=== PATIENT | female | born 1995 | race Caucasian/White ===

== ENCOUNTER 2020-12-13 15:27 | Outpatient (CLI) | payer BC ==
[~2020-12-13] VITALS: Ht 175.3 cm; Wt 115.9 kg
[2020-12-13 15:30] VITALS: BP 127/78
== END 2020-12-13 17:19 | disposition home or self-care (01) ==
LOC: LDOP 15:27
PROVIDERS: ATTEND Obstetrics & Gynecology
DX: O22.33 Deep phlebothrombosis in pregnancy, third trimester (principal); Z3A.32 32 weeks gestation of pregnancy
CPT/HCPCS: 59025

== ENCOUNTER 2021-01-22 13:57 | Inpatient (IN) | payer BC ==
[~2021-01-22] VITALS: Ht 175.3 cm; Wt 123.0 kg
[2021-01-22 14:11] VITALS: BP 125/78
[2021-01-22] MEDS ORDERED: TERBUTALINE 1 MG/ML, 1ML SQ PRN (14:30)
[2021-01-22] MEDS ORDERED: PLEASE ENTER HEIGHT AND WEIGHT MC SCH (14:30)
[2021-01-22] MEDS ORDERED: OXYTOCIN 30U/ 0.9% NaCL 500ML 500 ML IV PRN (14:30)
[2021-01-22] MEDS ORDERED: CALCIUM CARBONATE 500 MG TAB.CHEW PO PRN (14:30)
[2021-01-22] MEDS ORDERED: D5%-LACTATED RINGERS 1,000 ML IV SCH (14:30)
[2021-01-22] MEDS ORDERED: OXYTOCIN 30U/ 0.9% NaCL 500ML 500 ML IV ONE (14:30)
[2021-01-22] MEDS ORDERED: LACTATED RINGERS 1,000 ML IV SCH (14:30)
[2021-01-22] MEDS ORDERED: TERBUTALINE 1 MG/ML, 1ML IVPush PRN (14:30)
[2021-01-22] MEDS ORDERED: ONDANSETRON 2MG/ML, 2ML IVPush PRN (14:30)
[2021-01-22] MEDS ORDERED: FENTANYL PF 100 MCG/2ML IV PRN (14:30)
[2021-01-22 14:40] LABS: MICROSCOPIC INDICATED
[2021-01-22 14:40] LABS: BASOPHILS % (AUTO) 1 % (0-1); EOSINOPHILS % (AUTO) 0 % (1-7); LYMPHOCYTES % (AUTO) 26 % (22-44); MEAN CORPUSCULAR HEMOGLOBIN 31.2 pg (27.0-34.8); MEAN CORPUSCULAR HGB CONC 33.8 g/dL (32.4-35.8); MEAN PLATELET VOLUME 8.8 fL (7.4-10.4); MONOCYTES % (AUTO) 5 % (2-9); NEUTROPHILS % (AUTO) 68 % (42-75); PLATELET COUNT 205 x10^3/uL (130-400); RED BLOOD COUNT 4.19 x10^6/uL (3.82-5.3); RED CELL DISTRIBUTION WIDTH 15.1 % (9.6-15.2)
[2021-01-22 14:43] LABS: MD NO
[2021-01-22 14:50] LABS: ALANINE AMINOTRANSFERASE 21 U/L (12-78); ALBUMIN 2.7 g/dL (3.4-5.0); ANION GAP 6 mmol/L (5-15); CALCIUM 9.1 mg/dL (8.5-10.1); CHLORIDE 110 mmol/L (98-107); CREATININE 0.93 mg/dL (0.55-1.02)
[2021-01-22 14:53] LABS: ALKALINE PHOSPHATASE 96 U/L (45-117); BILIRUBIN,TOTAL 0.2 mg/dL (0.2-1.0); TOTAL PROTEIN 6.7 g/dL (6.4-8.2)
[2021-01-22 14:55] LABS: BILIRUBIN, DIRECT < 0.1 mg/dL (0.1-0.2)
[2021-01-22] MEDS: MISOPROSTOL 25 MCG TABLET VG PRN ×2 (14:56→20:35)
[2021-01-23] MEDS: FENTANYL PF 100 MCG/2ML IVPush PRN ×2 (07:51→09:05)
[2021-01-23] MEDS ORDERED: LIDOCAINE 1%, 20ML ONE (08:53)
[2021-01-23] MEDS ORDERED: ONDANSETRON 2MG/ML, 2ML IV PRN (09:30)
[2021-01-23] MEDS ORDERED: MISOPROSTOL 200 MCG TABLET PR PRN (09:30)
[2021-01-23] MEDS ORDERED: ACETAMINOPHEN 325 MG TABLET PO PRN (09:30)
[2021-01-23] MEDS ORDERED: OXYTOCIN 30U/ 0.9% NaCL 500ML 500 ML IV SCH (09:30)
[2021-01-23] MEDS ORDERED: SIMETHICONE 80 MG CHEW TAB PO PRN (09:30)
[2021-01-23] MEDS ORDERED: METOCLOPRAMIDE 5 MG/ML, 2ML IV PRN (09:30)
[2021-01-23] MEDS ORDERED: OXYcodone/APAP 5/325MG TABLET PO PRN ×2 (09:30)
[2021-01-23] MEDS ORDERED: NEWBORN KIT ONE (09:59)
[2021-01-23 11:00] VITALS: BP 123/74
[2021-01-23] MEDS: IBUPROFEN 800 MG TABLET PO PRN ×2 (12:43→23:53)
[2021-01-23] MEDS: DOCUSATE 100 MG CAPSULE PO PRN ×2 (12:43→23:53)
[2021-01-23 16:30] VITALS: BP 100/45
[2021-01-23 19:27] LABS: BASOPHILS % (AUTO) 0 % (0-1); EOSINOPHILS % (AUTO) 0 % (1-7); LYMPHOCYTES % (AUTO) 20 % (22-44); MEAN CORPUSCULAR HEMOGLOBIN 30.9 pg (27.0-34.8); MEAN PLATELET VOLUME 8.9 fL (7.4-10.4); MONOCYTES % (AUTO) 5 % (2-9); NEUTROPHILS % (AUTO) 75 % (42-75); PLATELET COUNT 173 x10^3/uL (130-400); RED BLOOD COUNT 3.67 x10^6/uL (3.82-5.3); RED CELL DISTRIBUTION WIDTH 14.8 % (9.6-15.2)
[2021-01-23 19:30] LABS: MD NO
[2021-01-23 20:00] VITALS: BP 109/67
[2021-01-24] VITALS: BP 108/69
[2021-01-24 04:30] VITALS: BP 93/58
[2021-01-24] MEDS: DOCUSATE 100 MG CAPSULE PO PRN (07:49)
[2021-01-24] MEDS: IBUPROFEN 800 MG TABLET PO PRN (07:49)
[2021-01-24 08:05] VITALS: BP 113/67
[2021-01-24] MEDS ORDERED: IBUP-1222 PO (08:05)
[2021-01-24] MEDS ORDERED: OXYTOCIN 30U/ 0.9% NaCL 500ML 500 ML IV SCH (09:00)
[2021-01-24] MEDS ORDERED: ONDANSETRON 2MG/ML, 2ML IV PRN (09:00)
[2021-01-24] MEDS ORDERED: MISOPROSTOL 200 MCG TABLET PR PRN (09:00)
[2021-01-24] MEDS ORDERED: SIMETHICONE 80 MG CHEW TAB PO PRN (09:00)
[2021-01-24] MEDS ORDERED: OXYcodone IR 5MG TABLET PO PRN (09:00)
[2021-01-24] MEDS ORDERED: DOCUSATE 100 MG CAPSULE PO PRN (09:00)
[2021-01-24] MEDS ORDERED: PRENATAL VIT/IRON/FA 1 EACH TABLET PO SCH ×2 (09:00)
[2021-01-24] MEDS ORDERED: ACETAMINOPHEN 325 MG TABLET PO PRN (09:00)
[2021-01-24] MEDS ORDERED: OXYcodone/APAP 5/325MG TABLET PO PRN (09:00)
[2021-01-24] MEDS ORDERED: IBUPROFEN 600 MG TABLET PO PRN (09:00)
[2021-01-24 12:00] VITALS: BP 110/70
== END 2021-01-24 13:45 | disposition home or self-care (01) | DRG 807 ==
LOC: LDIP 13:57 → 2NW 01-23 10:55
PROVIDERS: ADMIT Obstetrics & Gynecology; ATTEND Obstetrics & Gynecology
PROC: 10E0XZZ Delivery of Products of Conception, External Approach (ICD-10-PCS; principal; 2021-01-23)
PROC: 0KQM0ZZ Repair Perineum Muscle, Open Approach (ICD-10-PCS; 2021-01-23)
PROC: 10H07YZ Insertion of Other Device into Products of Conception, Via Natural or Artificial Opening (ICD-10-PCS; 2021-01-23)
DX: O76 Abnormality in fetal heart rate and rhythm complicating labor and delivery (principal); Z37.0 Single live birth; Z20.822 Contact with and (suspected) exposure to COVID-19; Z3A.38 38 weeks gestation of pregnancy; Z82.49 Family history of ischemic heart disease and other diseases of the circulatory system; O13.4 Gestational [pregnancy-induced] hypertension without significant proteinuria, complicating childbirth; O70.1 Second degree perineal laceration during delivery
CPT/HCPCS: 36415; 80053; 81001; 82248; 82570; 84156; 84550; 85025; 86592; 86850; 86900; 87635; G0378; J2405; J3010; J3105; J7120

== ENCOUNTER 2021-01-26 02:36 | Emergency (ER) | payer BC ==
[~2021-01-26] VITALS: Ht 175.3 cm; Wt 110.0 kg
[~2021-01-26 02:36] MED LIST: IBUP-1222 PO
[2021-01-26] MEDS ORDERED: KETOROLAC 30 MG/1 ML IVPush ONE (03:00)
[2021-01-26] MEDS ORDERED: SODIUM CHLORIDE 0.9% 1,000ML IVBOLUS ONE (03:00)
[2021-01-26] MEDS ORDERED: ONDANSETRON 2MG/ML, 2ML IVPush ONE (03:00)
--- NOTE | 2021-01-26 03:00 | NUR ---
Pt arrived with uterine cramping that was unrelieved with motrin. Pt is a new parent and has stated that she has gotten little sleep over the last 3 days with her new born, she also reports nausea but no vomitting. Pt connected to BP and O2 monitors, WILLOW COLLINS, at bedside.
[2021-01-26] MEDS ORDERED: ONDANSETRON 2MG/ML, 2ML ONE (03:02)
[2021-01-26] MEDS ORDERED: KETOROLAC 30 MG/1 ML ONE (03:02)
[2021-01-26 03:30] VITALS: BP 151/97
[2021-01-26 03:38] LABS: BASOPHILS % (AUTO) 0 % (0-1); EOSINOPHILS % (AUTO) 2 % (1-7); LYMPHOCYTES % (AUTO) 24 % (22-44); MEAN CORPUSCULAR HEMOGLOBIN 31.1 pg (27.0-34.8); MEAN CORPUSCULAR HGB CONC 34.2 g/dL (32.4-35.8); MEAN PLATELET VOLUME 8.4 fL (7.4-10.4); MICROSCOPIC AUTO; MONOCYTES % (AUTO) 4 % (2-9); NEUTROPHILS % (AUTO) 70 % (42-75); PLATELET COUNT 205 x10^3/uL (130-400); RED BLOOD COUNT 3.94 x10^6/uL (3.82-5.3)
[2021-01-26 03:40] LABS: MD NO
[2021-01-26 03:47] LABS: ALANINE AMINOTRANSFERASE 29 U/L (12-78); ALBUMIN 2.6 g/dL (3.4-5.0); ANION GAP 8 mmol/L (5-15); CALCIUM 8.9 mg/dL (8.5-10.1); CHLORIDE 111 mmol/L (98-107)
[2021-01-26 03:50] LABS: ALKALINE PHOSPHATASE 91 U/L (45-117); BILIRUBIN,TOTAL 0.5 mg/dL (0.2-1.0); CREATININE 0.83 mg/dL (0.55-1.02); TOTAL PROTEIN 6.9 g/dL (6.4-8.2)
--- NOTE | 2021-01-26 04:07 | NUR ---
report from kasi wells
--- NOTE | 2021-01-26 04:08 | NUR ---
pt reports feeling "a million times better"
[2021-01-26] MEDS ORDERED: NITROFURANTOIN (MACROBID) 100 MG CAPSULE PO ONE (05:00)
== END 2021-01-26 05:23 | disposition home or self-care (01) ==
LOC: ED 05:14
DX: N30.00 Acute cystitis without hematuria (principal); R10.30 Lower abdominal pain, unspecified; R11.0 Nausea; I45.6 Pre-excitation syndrome
CPT/HCPCS: 36415; 80053; 81001; 83690; 85025; 87086; 96361; 96374; 96375; 99284; J1885; J2405; J7030

== ENCOUNTER 2021-01-26 19:45 | Emergency (ER) | payer BC ==
[~2021-01-26] VITALS: Ht 175.3 cm; Wt 120.0 kg
--- NOTE | 2021-01-26 20:06 | NUR ---
PT FEELING WEAK AND DIZZY STARTING A COUPLE HOURS AGO. DX UTI THIS AM, HAS TAKEN PRESCRIBED ABX. PT POST PARTEM 3 DAYS, FULL TERM. PT 3 DAY OLD IS IN ER AT THIS TIME WELL, PT STARTED NOT FEELING WELL WHILE HERE IN ER. PT C/O DIZZINESS AND SAT HERSELF ON THE FLOOR. VSS. FSBG 98. PT CONNECTED TO MONITORING. CALL LIGHT IN REACH. PT SPOUSE AND 3 DAY OLD DAUGHTER AT BEDSIDE.
--- NOTE | 2021-01-26 20:46 | NUR ---
PT AMBULATED TO RESTROOM WITH STEADY GAIT TO PROVIDE URINE SAMPLE. UA COLLECTED AND SENT TO LAB. PIV PLACED, LABS DRAWN. IVF RUNNING.
[2021-01-26 20:51] LABS: BASOPHILS % (AUTO) 1 % (0-1); EOSINOPHILS % (AUTO) 2 % (1-7); LYMPHOCYTES % (AUTO) 26 % (22-44); MEAN CORPUSCULAR HEMOGLOBIN 31.2 pg (27.0-34.8); MEAN CORPUSCULAR HGB CONC 33.8 g/dL (32.4-35.8); MEAN PLATELET VOLUME 8.3 fL (7.4-10.4); MONOCYTES % (AUTO) 5 % (2-9); NEUTROPHILS % (AUTO) 66 % (42-75); PLATELET COUNT 233 x10^3/uL (130-400); RED BLOOD COUNT 3.95 x10^6/uL (3.82-5.3); RED CELL DISTRIBUTION WIDTH 14.8 % (9.6-15.2)
[2021-01-26 20:53] LABS: MD NO
[2021-01-26] MEDS ORDERED: SODIUM CHLORIDE 0.9% 1,000ML IVBOLUS ONE (21:00)
[2021-01-26] MEDS ORDERED: SODIUM CHLORIDE FLUSH 10ML SYR IVF ONE (21:00)
[2021-01-26 21:02] LABS: ALANINE AMINOTRANSFERASE 37 U/L (12-78); ALBUMIN 2.8 g/dL (3.4-5.0); ANION GAP 8 mmol/L (5-15); CALCIUM 9.2 mg/dL (8.5-10.1); CHLORIDE 112 mmol/L (98-107)
[2021-01-26 21:04] LABS: ALKALINE PHOSPHATASE 92 U/L (45-117); BILIRUBIN,TOTAL 0.3 mg/dL (0.2-1.0); TOTAL PROTEIN 7.4 g/dL (6.4-8.2)
[2021-01-26 21:09] LABS: MICROSCOPIC AUTO
[2021-01-26 21:30] VITALS: BP 122/85
--- NOTE | 2021-01-26 21:43 | NUR ---
ERMD AT BEDSIDE TO UPDATE PT ON POC.
== END 2021-01-26 22:08 | disposition home or self-care (01) ==
LOC: ED 20:18
DX: N30.00 Acute cystitis without hematuria (principal); R42 Dizziness and giddiness; R53.1 Weakness; I45.6 Pre-excitation syndrome
CPT/HCPCS: 36415; 80053; 81001; 85025; 87086; 96360; 99283; J7030

== ENCOUNTER 2021-01-28 21:22 | Emergency (ER) | payer BC ==
[~2021-01-28] VITALS: Ht 175.3 cm; Wt 117.3 kg
[2021-01-28 22:10] LABS: BASOPHILS % (AUTO) 1 % (0-1); EOSINOPHILS % (AUTO) 2 % (1-7); LYMPHOCYTES % (AUTO) 29 % (22-44); MEAN CORPUSCULAR HEMOGLOBIN 31.1 pg (27.0-34.8); MEAN CORPUSCULAR HGB CONC 34.1 g/dL (32.4-35.8); MONOCYTES % (AUTO) 6 % (2-9); NEUTROPHILS % (AUTO) 62 % (42-75); PLATELET COUNT 244 x10^3/uL (130-400); RED BLOOD COUNT 3.88 x10^6/uL (3.82-5.3); RED CELL DISTRIBUTION WIDTH 14.6 % (9.6-15.2)
[2021-01-28 22:15] LABS: MD NO
[2021-01-28 22:23] LABS: ALBUMIN 2.7 g/dL (3.4-5.0); ANION GAP 8 mmol/L (5-15); CALCIUM 9.6 mg/dL (8.5-10.1); CHLORIDE 111 mmol/L (98-107); CREATININE 0.83 mg/dL (0.55-1.02)
[2021-01-28 22:27] LABS: TROPONIN I < 0.015 ng/mL (0.000-0.045)
[2021-01-29] MEDS ORDERED: OMNIPAQUE 350 MG/ML, 75ML BOTTLE ONE (00:13)
[2021-01-29 01:03] VITALS: BP 125/66
== END 2021-01-29 01:07 | disposition home or self-care (01) ==
LOC: ED 22:26
DX: R07.89 Other chest pain (principal); R06.00 Dyspnea, unspecified; I45.6 Pre-excitation syndrome
CPT/HCPCS: 36415; 71045; 71275; 80048; 82040; 83880; 84484; 85025; 85379; 93005; 99285; Q9967